=== PATIENT | female | born 1930 | race Caucasian/White ===

== ENCOUNTER 2019-06-02 20:26 | Observation (INO) ==
[2019-06-02 21:03] LABS: BASO# 0.02 X1000 (0.0-0.2); BASO% 0.4 % (0.0-0.8); EOS# 0.02 X1000 (0.0-0.7); EOS% 0.4 % (0.0-10.0); HEMATOCRIT 41.2 % (37.0-47.0); HEMOGLOBIN 13.3 g/dL (12.0-16.0); LYMPH# 0.84 X1000 (1.2-3.4); LYMPH% 15.1 % (20.5-51.1); MCH 29.7 PG (27-31); MCHC 32.3 g/dL (33-37); MONO# 0.42 X1000 (0.11-0.59); MONO% 7.6 % (1.7-9.3); MPV 13.8 FL (7.4-10.4); NEUT# 4.26 X1000 (1.4-6.5); NEUT% 76.5 % (42.2-75.2); PLT 198 X1000 (130-400); RBC 4.48 XMIL (4.2-5.4); RDW 14.5 % (11.5-14.5); WBC 5.56 X1000 (4.8-10.8)
--- NOTE | 2019-06-02 21:04 | EKG Report ---
Test Performed on : 06/02/2019 8:50:41 PM Test Reason : protocol Blood Pressure : / mmHG Vent. Rate : 078 BPM Atrial Rate : 078 BPM P-R Int : 162 ms QRS Dur : 104 ms QT Int : 420 ms P-R-T Axes : 042 -44 073 degrees QTc Int : 478 ms Normal sinus rhythm. 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
[2019-06-02 21:37] LABS: ALB/GLOB RATIO 1.1; CALCIUM 8.6 mg/dL (8.8-10.2); CREATININE 1.2 mg/dL (0.5-0.9); MAGNESIUM 1.9 mg/dL (1.5-2.7); POTASSIUM 3.4 mmol/L (3.5-5.1); TOTAL BILIRUBIN 0.4 mg/dL (0.20-1.00); TOTAL PROTEIN 7.6 g/dL (6.3-8.3)
--- NOTE | 2019-06-03 00:57 | PROVIDER DOCUMENTATION ---
This chart was entered by Munira Zarate Scribe, acting as scribe for Melida Boles MD. HPI-General Adult - General Chief Complaint: Ingestion,Accidental Stated Complaint: TOOK 10 GLIPIZIDE,NOT HER MEDS Time Seen by Provider: 06/02/19 23:54 Source: family Allergies/Adverse Reactions: Patient Allergies Allergy/AdvReac Type Severity Reaction Status Date / Time aspirin Allergy Unknown Verified 01/30/18 07:07 cephalexin [From Keflex] Allergy Unknown Verified 01/30/18 07:07 Penicillins Allergy Unknown Verified 01/30/18 07:07 - History of Present Illness -Gen Adult Nature of Presenting Problems: 88 y/o female presents to ED after taking an unknown number of her 's 2.5 mg glipizide just prior to arrival. Pt has hx dementia. Daughter states that her father lays his medications out usually and this has never been a problem before but she walked up and took a handful of glipizide. Pt is alert and mostly nonverbal. Per daughter she is at her baseline mental status. Location of Pain/Injury: reports: none Pain Radiation: reports: no radiation Quality of Pain: reports: none Severity: reports: mild Onset/Duration: reports: just prior to arrival Timing: reports: still present Context/Activities at Onset: reports: other (ingestion) Modifying Factors: improves with: nothing Associated Symptoms: reports: denies symptoms Similar Symptoms Previously?: No Recently seen or treated by another doctor?: No Review of Systems - Adult - REVIEW OF SYSTEMS - ADULT ROS:: ROS per family Constitutional: reports: other (ingestion of glipizide). denies: chills, fever Eyes: reports: no symptoms reported Ears, Nose, Mouth & Throat: reports: no symptoms reported Cardiovascular: denies: chest pain, palpitations Respiratory: denies: cough, shortness of breath Gastrointestinal: denies: abdominal pain, diarrhea, nausea, vomiting Genitourinary: reports: no symptoms reported Musculoskeletal: denies: back pain, joint pain Integumentary: reports: no symptoms reported Neurological: denies: dizziness/vertigo, seizure Psychiatric: reports: no symptoms reported Endocrine: reports: no symptoms reported Hematologic/Lymphatic: reports: no symptoms reported Allergic/Immunologic: reports: no symptoms reported All Other Systems: Reviewed and Negative Past History - Adult - PAST MEDICAL HISTORY-ADULT Review of Records: reports: Old Records Reviewed, Nursing Assessment Review, Medications Reviewed Major Childhood Illnesses: reports: denies history Cardiovascular: reports: HTN Neurological: reports: dementia Endocrine/Immune: reports: Diabetes, thyroid disorder - PRIOR SURGERIES/PROCEDURES Surgical/Procedure History: reports: breast (mastectomy) - IMMUNIZATION STATUS Childhood Immunizations: See Nurse Assessment Flu Vaccine: See Nurse Assessment - FAMILY HISTORY Family History: reviewed, not pertinent - SOCIAL HISTORY Smoking: non-smoker Substance Use: none/never Alcohol Use Frequency: never Living Situation: family Physical Exam-General - PHYSICAL EXAM-ADULT Initial Vital Signs Reviewed: Yes - CONSTITUTIONAL General Appearance: appears well, alert, no apparent distress, other (pt mostly nonverbal; lying in bed) - EYES Eyes: PERRL/EOMI, pink conjunctivae - HEAD, EARS, NOSE, MOUTH & THROAT HENMT: normocephalic/atraumatic, moist mucous membranes, normal ENT inspection - NECK Neck: non-tender, full range of motion - RESPIRATORY Respiratory: chest non-tender, lungs clear, normal breath sounds - CARDIOVASCULAR Cardiovascular: normal peripheral pulses, regular rate, rhythm, systolic murmur (in all 4 quadrants) - GASTROINTESTINAL (ABDOMEN) Abdominal Exam: normal bowel sounds, non tender, soft - MUSCULOSKELETAL Back Exam: normal inspection, no CVA tenderness, no vertebral tenderness Extremity: non-tender, normal inspection - SKIN Integumentary: normal color, warm/dry - NEUROLOGIC Neurologic: grossly normal, other (pt mostly nonverbal; lying in bed) - PSYCHIATRIC Psych/Mental Status: other (pt mostly nonverbal; lying in bed) Progress - PLAN OF CARE/RESULTS Progress/Plan/Lab Results: Vital Signs - 8 hr 06/02/19 20:37 Temperature 98.9 F Pulse Rate 96 H Respiratory Rate 20 Blood Pressure 174/91 O2 Sat by Pulse Oximetry 95 Laboratory Results - last 24 hr 06/02/19 06/02/19 06/02/19 20:45 20:45 23:03 WBC 5.56 RBC 4.48 Hgb 13.3 Hct 41.2 MCV 92.0 MCH 29.7 MCHC 32.3 L RDW Std Deviation 14.5 Plt Count 198 MPV 13.8 H Immature Gran % (Auto) 0.0 Neut % (Auto) 76.5 H Lymph % (Auto) 15.1 L [place] % (Auto) 7.6 Eos % (Auto) 0.4 Baso % (Auto) 0.4 Immature Gran # (Auto) 0.00 Neut # (Auto) 4.26 Lymph # (Auto) 0.84 L [place] # (Auto) 0.42 Eos # (Auto) 0.02 Baso # (Auto) 0.02 Sodium 142 Potassium 3.4 L Chloride 104 Carbon Dioxide 24 L Anion Gap 14 BUN 31 H Creatinine 1.2 H Estimated GFR/1.73 m2 42 BUN/Creatinine Ratio 26 Glucose 454 H* POC Glucose 481 H Calculated Osmolality 310 Calcium 8.6 L Magnesium 1.9 Total Bilirubin 0.40 AST 19 ALT 27 Alkaline Phosphatase 79 Total Protein 7.6 Albumin 4.0 Globulin 3.6 Albumin/Globulin Ratio 1.1 Lipase 60 06/03/19 00:17 WBC RBC Hgb Hct MCV MCH MCHC RDW Std Deviation Plt Count MPV Immature Gran % (Auto) Neut % (Auto) Lymph % (Auto) [place] % (Auto) Eos % (Auto) Baso % (Auto) Immature Gran # (Auto) Neut # (Auto) Lymph # (Auto) [place] # (Auto) Eos # (Auto) Baso # (Auto) Sodium Potassium Chloride Carbon Dioxide Anion Gap BUN Creatinine Estimated GFR/1.73 m2 BUN/Creatinine Ratio Glucose POC Glucose 455 H Calculated Osmolality Calcium Magnesium Total Bilirubin AST ALT Alkaline Phosphatase Total Protein Albumin Globulin Albumin/Globulin Ratio Lipase Orders Category Date Time Status CBC WITH DIFF [HEME] Stat Lab 06/02/19 20:45 Completed COMPREHENSIVE METABOLIC PANEL [CHEM] Stat Lab 06/02/19 20:45 Completed LIPASE [CHEM] Stat Lab 06/02/19 20:45 Completed MAGNESIUM [CHEM] Stat Lab 06/02/19 20:45 Completed EKG [EKG] Stat Ther 06/02/19 20:50 Draft Result Diagrams: 06/02/19 20:45 06/02/19 20:45 - EKG 1 Time of EKG reading by physician:: 20:55 EKG Read and Signed by:: Melida Boles EKG Interpretation (*Must complete 3 of following elements*): Abnormal Rate: 78 Rhythm: NSR [place]: left QRS: other (anteroseptal infarct) MD Interval: normal ST Wave: non-specific ST changes - CONSULTS/PCP/HOSPITALIST Notification #1 *Consult/PCP/Hospitalist*: Dr. Nguyen Time Discussed: 00:15 Reason/Comments: Accidental overdose Consult Disposition: Admit Departure - Departure Date of Disposition Decision: 06/03/19 Time of Disposition Decision: 00:37 DIAGNOSIS: Accidental overdose Qualifiers: Encounter type: initial encounter Qualified Code(s): T50.901A - Poisoning by unspecified drugs, medicaments and biological substances, accidental (unintent ional), initial encounter Disposition: ADMITTED INPATIENT 09 Certified Medical Emergency: Emergent Condition: Stable Referrals and Follow-Ups: Ambrocio Zaldivar MD [Primary Care Provider] - - Critical Care Note This patient required my direct & personal management of CC.: No Attestation - Physician/ RENNY Attestation Patient care was provided by Advanced Practice Provider:: No The physician spent face to face time with patient:: Yes Advanced Practice Provider documentation review:: Supervising physician onsite and consulted in the evaluation and care of this patient. The physician did have a face to face encounter with the patient. This chart was documented by the indicated scribe, (Munira Zarate Scribe) and accurately reflects the services I performed and decisions made by me, Melida Boles MD, as attested by the provider's signature.
[2019-06-03] MEDS ORDERED: NS 1,000 ML IV SCH (04:30)
--- NOTE | 2019-06-03 09:08 | HISTORY AND PHYSICAL ---
PRIMARY CARE PROVIDER: Otilia Chavez. CHIEF COMPLAINT: Accidentally took spouse's glipizide pills. HISTORY OF PRESENTING ILLNESS: An 88-year-old, elderly female with a history of dementia, hypertension, diabetes mellitus type 2, who was brought to the emergency department due to patient accidentally taking her spouse's glipizide. It is unclear how many pills she took. So subsequently she was brought to the emergency department. In the ED she was evaluated. Due to her presenting symptoms, it was thought that we will place her in observation for further evaluation and management. The patient is a poor historian and most of the history is obtained from family members and patient is hard of hearing. PAST MEDICAL HISTORY: Includes dementia, hypertension, diabetes mellitus type 2. PAST SURGICAL HISTORY: Right mastectomy, left arm surgery, thyroidectomy, cholecystectomy, cataract surgery, back surgery. ALLERGIES: Penicillin and sulfa. CURRENT MEDICATIONS: She does not recall and nursing staff will reconcile. SOCIAL HISTORY: No history of smoking, alcohol or illicit drug use. FAMILY HISTORY: Positive for coronary disease in mother. REVIEW OF SYSTEMS: Limited. PHYSICAL EXAMINATION: GENERAL: This is an elderly female. She is resting comfortably. VITAL SIGNS: Temperature 98.9, pulse 96, respirations 20, blood pressure 174/91. She is satting 95%. HEENT: Atraumatic, normocephalic. PERRLA. NECK: No masses. CHEST: Clear to auscultation. CARDIOVASCULAR: Regular rate and rhythm. ABDOMEN: Soft. Positive bowel sounds. EXTREMITIES: No edema. NEUROLOGIC: She is awake, alert, oriented x1. : No bladder distention. SKIN: Warm. LABORATORIES AND STUDIES: WBC 5.56, hemoglobin 13.3, hematocrit 41.2, platelets 198. Sodium 142, potassium 3.4, chloride 104, CO2 is 24. BUN is 31, creatinine is 1.2, glucose is 454. HOSPITAL COURSE: This 88-year-old female with a history of dementia, hypertension, diabetes mellitus type 2 was brought to the emergency department due to patient accidentally taking her spouse's glipizide. She was evaluated in the emergency department due to patient taking the oral hypoglycemic. Will keep patient for observation for further management. ASSESSMENT: 1. Suspected accidental overdose on glipizide. It is unclear how many pills were taken. 2. Diabetes mellitus type 2. 3. Hypertension. 4. Dementia. PLAN: 1. We will admit patient to medical floor with telemetry. 2. Continue to monitor blood glucose closely and monitor for signs of hypoglycemia. 3. We will monitor blood pressure closely. 4. We will restart other home medications. 5. Put patient on DVT prophylaxis with SCDs. 6. We will continue to follow and reassess. Make further recommendation based on patient's clinical course. cc: Jaxon Nguyen MD
[2019-06-03] MEDS ORDERED: HUMALOG SUBQ ONE (11:19)
[2019-06-03 15:40] VITALS: BP 129/55
--- NOTE | 2019-06-04 11:11 | DISCHARGE SUMMARY ---
ADMISSION DATE: 06/03/2019 DISCHARGE DATE: 06/03/2019 DISCHARGE DISPOSITION: Home with family. DISCHARGE CONDITION: Hemodynamically stable. Alert. Her blood sugars have been in the 200s. No hypoglycemic episodes. DISCHARGE DIAGNOSES: 1. Suspected overdose of glipizide, which is her 's medication. 2. Kidney failure of unclear chronicity. OTHER DIAGNOSES: 1. Dementia. 2. Hearing impairment. 3. Essential hypertension. DISCHARGE MEDICATIONS: None. She is not listed to be taking any medications at home. All of the medication reconciliation is pending. LABORATORY: Basic metabolic panel has been provided. HOSPITAL COURSE SUMMARY: Ms. Lopez is an 88 year old elderly female with history of dementia, hypertension, and diabetes mellitus type 2, who was brought into the emergency room due to suspicion of patient taking her spouse's glipizide accidentally. It was unclear how many pills she could have taken. In the emergency room, she was evaluated and she was admitted under observation. During hospital admission, her blood sugar did not drop. In fact, her blood sugars were very high with blood sugars in 400s to 300s. She had to be given subcu insulin. At the time of discharge, the patient was advised to discuss with her regular doctor about resuming medications for her diabetes or starting new medications since her blood sugars were high. She was also advised to get repeat BMP to evaluate her kidney failure. Considering her advanced age and dementia, it was decided to discharge her and have outpatient follow up with her regular doctor. Plan of care discussed with the patient's granddaughter at bedside. All of her questions have been answered. TIME SPENT: Less than 30 minutes were spent in discharging this patient. cc: Kiran Brooks MD
== END 2019-06-03 18:12 | disposition home or self-care (01) ==
LOC: ED 20:26 → 3N 20:26 → SUATTDRO 06-03 03:42
PROVIDERS: ATTEND Internal Medicine
CPT/HCPCS: 80053; 82948; 83690; 83735; 85025; 93005; A9270; J1815; J7030; XXXXX